=== PATIENT | female | born 1985 | race Caucasian/White ===

== ENCOUNTER 2017-06-21 22:45 | Emergency (ER) | payer MEDICAID ==
[~2017-06-21] VITALS: Ht 162.6 cm; Wt 120.0 kg
[~2017-06-21 22:45] MED LIST: ALBU0.63 NEB; ALPR-475 PO; DULO60CA7 PO; OXYC-306 PO; TRAZ50TA18 PO
[2017-06-21 23:20] LABS: MICROSCOPIC AUTO
[2017-06-21 23:24] LABS: BASOPHILS # (AUTO) 0.03 x10^3/uL (0-0.1); BASOPHILS % (AUTO) 0 % (0-1); EOSINOPHILS # (AUTO) 0.27 x10^3/uL (0-0.4); EOSINOPHILS % (AUTO) 3 % (1-7); LYMPHOCYTES # (AUTO) 2.55 x10^3/uL (1-3.4); LYMPHOCYTES % (AUTO) 24 % (22-44); MD NO; MEAN CORPUSCULAR HEMOGLOBIN 29.7 pg (27.0-34.8); MEAN CORPUSCULAR VOLUME 90.1 fL (80-100); MONOCYTES # (AUTO) 0.67 x10^3/uL (0.2-0.8); MONOCYTES % (AUTO) 6 % (2-9); NEUTROPHILS # (AUTO) 7.31 x10^3/uL (1.8-6.8); NEUTROPHILS % (AUTO) 68 % (42-75); PLATELET COUNT 481 x10^3/uL (130-400); RED BLOOD COUNT 4.66 x10^6/uL (3.82-5.3); RED CELL DISTRIBUTION WIDTH 14.8 % (9.6-15.2)
[2017-06-21] MEDS ORDERED: ONDANSETRON ODT 8 MG PO ONE (23:30)
[2017-06-21] MEDS ORDERED: OXYcodone/APAP 7.5/325MG TABLET PO ONE (23:30)
[2017-06-21 23:37] LABS: ALANINE AMINOTRANSFERASE 30 U/L (12-78); ALBUMIN 3.2 g/dL (3.4-5.0); ANION GAP 7 mmol/L (5-15); CALCIUM 9.1 mg/dL (8.5-10.1); CHLORIDE 107 mmol/L (98-107); CREATININE 0.84 mg/dL (0.55-1.02)
[2017-06-21 23:39] LABS: ALKALINE PHOSPHATASE 77 U/L (45-117); BILIRUBIN,TOTAL 0.2 mg/dL (0.2-1.0); TOTAL PROTEIN 6.8 g/dL (6.4-8.2)
[2017-06-21] MEDS ORDERED: ONDANSETRON ODT 8 MG ONE (23:41)
[2017-06-21] MEDS ORDERED: OXYcodone/APAP 7.5/325MG TABLET ONE (23:41)
[2017-06-22] MEDS ORDERED: ONDANSETRON ODT 4 MG ONE (01:33)
[2017-06-22 02:00] VITALS: BP 136/88
[2017-06-22] MEDS ORDERED: ONDANSETRON ODT 4 MG PO ONE (02:00)
== END 2017-06-22 02:01 | disposition home or self-care (01) ==
LOC: ED 06-22 01:33
DX: K80.20 Calculus of gallbladder without cholecystitis without obstruction (principal); Z87.891 Personal history of nicotine dependence; Z98.51 Tubal ligation status
CPT/HCPCS: 36415; 76700; 80053; 81001; 83690; 85025; 99285; Q0162

== ENCOUNTER 2017-07-02 13:30 | Day surgery (SDC) | payer MEDICAID ==
[~2017-07-02] VITALS: Ht 165.1 cm; Wt 117.8 kg
[~2017-07-02 13:30] MED LIST changes: +BUPIVACAINE/PF 0.5% ONE; +EPINEPHRINE 1 MG/ML, 1ML ONE; +INDOCYANINE GREEN 25 MG VIAL ONE; +SUGAMMADEX 200 MG/2 ML IVPush ONE
[2017-07-02 13:52] VITALS: BP 108/72
[2017-07-02] MEDS ORDERED: LACTATED RINGERS 1,000 ML IV SCH (13:59)
[2017-07-02] MEDS ORDERED: TIZA4CAP PO (14:04)
[2017-07-02] MEDS ORDERED: TOPI25TA8 PO (14:04)
[2017-07-02] MEDS ORDERED: ONDA4TAB7 PO (14:04)
[2017-07-02] MEDS ORDERED: FLUO40CA2 PO (14:04)
[2017-07-02] MEDS ORDERED: MORPHINE PO (14:04)
[2017-07-02] MEDS ORDERED: oxycodone PO (14:17)
[2017-07-02] MEDS ORDERED: INDOCYANINE GREEN 25 MG VIAL IV ONE (14:30)
[2017-07-02] MEDS ORDERED: MIDAZOLAM 1 MG/ML, 2ML ONE ×2 (14:37→16:20)
[2017-07-02] MEDS ORDERED: FENTANYL PF 100 MCG/2ML ONE ×4 (15:05→16:27)
[2017-07-02] MEDS ORDERED: KETOROLAC 30 MG/1 ML IM PRN ×2 (15:30)
[2017-07-02] MEDS ORDERED: MIDAZOLAM 1 MG/ML, 2ML IV PRN (15:30)
[2017-07-02] MEDS ORDERED: MEPERIDINE/PF 25MG/0.5ML IVPush PRN (15:30)
[2017-07-02] MEDS ORDERED: KETOROLAC 30 MG/1 ML IV PRN ×2 (15:30)
[2017-07-02] MEDS ORDERED: OXYcodone 5 MG/5 ML ORAL.SOL UDC PO PRN ×2 (15:30→16:30)
[2017-07-02] MEDS ORDERED: HYDROmorphone 1 MG/ML, 1ML IV PRN (15:30)
[2017-07-02] MEDS ORDERED: ONDANSETRON 2MG/ML, 2ML ONE (15:52)
[2017-07-02] MEDS ORDERED: PROPOFOL 10 MG/ML, 20ML ONE (15:52)
[2017-07-02] MEDS ORDERED: NEOSTIGMINE 1 MG/ML, 10ML ONE (15:52)
[2017-07-02] MEDS ORDERED: SUCCINYLCHOLINE 20 MG/ML, 10ML ONE (15:52)
[2017-07-02] MEDS ORDERED: CEFAZOLIN 1,000 MG ONE (15:52)
[2017-07-02] MEDS ORDERED: GLYCOPYRROLATE 0.2MG/1ML, 5ML ONE (15:52)
[2017-07-02] MEDS ORDERED: DEXAMETHASONE 4 MG/ML, 1ML ONE (15:52)
[2017-07-02] MEDS ORDERED: OXYcodone 5 MG/5 ML ORAL.SOL UDC ONE (16:10)
[2017-07-02] MEDS ORDERED: morphine SULFATE 10 MG/ML, 1ML ONE (16:10)
[2017-07-02] MEDS: morphine SULFATE 10 MG/ML, 1ML IV PRN ×3 (16:13→16:54)
[2017-07-02] MEDS: FENTANYL PF 100 MCG/2ML IV PRN ×4 (16:16→16:49)
[2017-07-02] MEDS ORDERED: ONDANSETRON 2MG/ML, 2ML IVPush PRN (16:30)
[2017-07-02] MEDS ORDERED: KETOROLAC 30 MG/1 ML IVPush PRN (16:30)
[2017-07-02] MEDS ORDERED: DIPHENHYDRAMINE 50 MG/ML, 1ML IVPush PRN (16:30)
[2017-07-02] MEDS ORDERED: morphine SULFATE 10 MG/ML, 1ML IVPush PRN (16:30)
[2017-07-02] MEDS ORDERED: MORPHINE SULFATE 4 MG/ML, 1ML ONE (16:52)
[2017-07-02] MEDS ORDERED: KETOROLAC 30 MG/1 ML ONE (19:35)
[2017-07-02] MEDS ORDERED: LIDOCAINE-MPF 2% ,5ML ONE (19:35)
[2017-07-02] MEDS ORDERED: ROCURONIUM 10 MG/ML,10ML ONE (19:35)
[2017-07-02] MEDS ORDERED: IBUPROFEN 600 MG TABLET PO SCH (21:00)
== END 2017-07-02 18:07 | disposition home or self-care (01) ==
LOC: OR 13:30
PROVIDERS: ATTEND Surgery
DX: K80.10 Calculus of gallbladder with chronic cholecystitis without obstruction (principal); F11.20 Opioid dependence, uncomplicated; G89.29 Other chronic pain; E66.01 Morbid (severe) obesity due to excess calories; Z68.43 Body mass index [BMI] 50.0-59.9, adult
CPT/HCPCS: 47562; 81025; 88304; J0171; J0330; J0690; J1100; J1885; J2250; J2270; J2405; J2704; J2710; J3010; J3490; J7120; S2900

== ENCOUNTER 2019-02-11 15:35 | Emergency (ER) | payer MEDICAID ==
[~2019-02-11] VITALS: Ht 154.9 cm; Wt 116.1 kg
[~2019-02-11 15:35] MED LIST changes: -ALPR-475 PO; +ALPR0.5T7 PO; +ARIP5TAB13 PO; +AZIT500T PO; -BUPIVACAINE/PF 0.5% ONE; +BUSP10TA PO; +CEFD300C37 PO; -EPINEPHRINE 1 MG/ML, 1ML ONE; +FLUO40CA2 PO; -INDOCYANINE GREEN 25 MG VIAL ONE; +MORPHINE PO; +ONDA4TAB7 PO; -SUGAMMADEX 200 MG/2 ML IVPush ONE; +TIZA4CAP PO; +TOPI25TA8 PO; +TRAZ-137 PO; -TRAZ50TA18 PO; +TRAZ50TA66 PO; +oxycodone PO
[2019-02-11 16:55] LABS: BASOPHILS # (AUTO) 0.02 x10^3/uL (0-0.1); BASOPHILS % (AUTO) 0 % (0-1); EOSINOPHILS # (AUTO) 0.32 x10^3/uL (0-0.4); EOSINOPHILS % (AUTO) 3 % (1-7); LYMPHOCYTES # (AUTO) 3.02 x10^3/uL (1-3.4); LYMPHOCYTES % (AUTO) 25 % (22-44); MD NO; MEAN CORPUSCULAR HEMOGLOBIN 30.4 pg (27.0-34.8); MEAN CORPUSCULAR HGB CONC 33.5 g/dL (32.4-35.8); MEAN CORPUSCULAR VOLUME 90.9 fL (80-100); MEAN PLATELET VOLUME 7.6 fL (7.4-10.4); MONOCYTES # (AUTO) 0.84 x10^3/uL (0.2-0.8); MONOCYTES % (AUTO) 7 % (2-9); NEUTROPHILS # (AUTO) 7.74 x10^3/uL (1.8-6.8); NEUTROPHILS % (AUTO) 65 % (42-75); PLATELET COUNT 485 x10^3/uL (130-400); RED CELL DISTRIBUTION WIDTH 14.3 % (9.6-15.2)
[2019-02-11 16:57] LABS: ALBUMIN 3.5 g/dL (3.4-5.0); ANION GAP 8 mmol/L (5-15); CALCIUM 8.6 mg/dL (8.5-10.1); CHLORIDE 108 mmol/L (98-107); CREATININE 0.78 mg/dL (0.55-1.02)
[2019-02-11 17:50] LABS: HCG UR SG 1.021 (1.003-1.030); MICROSCOPIC NOT IND
[2019-02-11 17:53] LABS: CULTURE INDICATED? NO
--- NOTE | 2019-02-11 19:15 | NUR ---
PT HERE FOR STD CHECK. VSS. WAITING FOR MD TO UPDATE ON POC. CALL LIGHT IN REACH
[2019-02-11 19:30] VITALS: BP 130/82
[2019-02-11 20:09] LABS: CLUE CELLS NONE SEEN (NONE SEEN); WET PREP WBCS NONE SEEN (FEW)
--- NOTE | 2019-02-11 20:48 | NUR ---
Patient/Caregiver given discharge instructions and they have confirmed that they understand the instructions. Patient ambulatory with steady gait.
== END 2019-02-11 20:52 | disposition home or self-care (01) ==
LOC: ED 19:01
DX: R05 Cough (principal); R09.81 Nasal congestion
CPT/HCPCS: 36415; 71046; 80048; 81003; 81025; 82040; 85025; 87210; 87491; 87591; 87808; 99284

== ENCOUNTER 2019-04-04 07:37 | Emergency (ER) | payer MEDICAID ==
[~2019-04-04] VITALS: Ht 162.6 cm; Wt 117.5 kg
[2019-04-04 07:39] VITALS: BP 144/99
[2019-04-04] MEDS ORDERED: LIDOCAINE-MPF 1%, 5ML ONE (07:51)
[2019-04-04] MEDS ORDERED: BUPIVACAINE 0.25% ONE (07:51)
[2019-04-04] MEDS ORDERED: LIDOCAINE-MPF 1%, 5ML INFIL ONE (08:00)
[2019-04-04] MEDS ORDERED: BUPIVACAINE/PF-EPI 0.25% 1:200K SQ ONE (08:00)
[2019-04-04] MEDS ORDERED: OXYcodone/APAP 5/325MG TABLET ONE (08:13)
--- NOTE | 2019-04-04 08:19 | NUR ---
Patient given discharge instructions and they have confirmed that they understand the instructions. Patient ambulatory with steady gait. Pt taking bus home. Pt left with d/c paperwork, Rx, work note, and all personal belongings.
[2019-04-04] MEDS ORDERED: OXYcodone/APAP 5/325MG TABLET PO ONE (08:30)
== END 2019-04-04 08:22 | disposition home or self-care (01) ==
LOC: ED 08:21
DX: K02.9 Dental caries, unspecified (principal); I95.9 Hypotension, unspecified; Z87.01 Personal history of pneumonia (recurrent); Z87.442 Personal history of urinary calculi; K08.89 Other specified disorders of teeth and supporting structures
CPT/HCPCS: 64400; 99284